=== PATIENT | female | born 1950 | race Two or more races ===

== ENCOUNTER → 2016-11-14 | Outpatient (CLI) | payer OTHER ==
--- NOTE | 2016-11-14 13:45 | RAD ---
DATE: 11/14/2016. EXAM: DIGITAL SCREEN BILAT W/CAD. HISTORY: Routine mammographic screening. COMPARISON: 11/14/2015. This study was interpreted with the benefit of Computerized Aided Detection (CAD). FINDINGS: The breast parenchyma shows scattered fibroglandular densities. There are no suspicious masses, microcalcifications or architectural distortion. Dense foci medially on the left CC view are stable chronically. Scattered calcifications are benign. BI-RADS CATEGORY: 2 BENIGN FINDING(S). RECOMMENDED FOLLOW-UP: 12M 12 MONTH FOLLOW-UP. PQRS compliance statement: Patient information was entered into a reminder system with a target due date 11/14/2017 for the next mammogram. Mammography is a sensitive method for finding small breast cancers, but it does not detect them all and is not a substitute for careful clinical examination. A negative mammogram does not negate a clinically suspicious finding and should not result in delay in biopsying a clinically suspicious abnormality. "Our facility is accredited by the [employer] Mammography [employer]."
== END | disposition home or self-care (01) ==
LOC: MAMMO 10:16
PROVIDERS: ATTEND Family Medicine
DX: Z12.31 Encounter for screening mammogram for malignant neoplasm of breast (principal)
CPT/HCPCS: G0202; 77067

== ENCOUNTER → 2017-12-02 | Outpatient (CLI) | payer OTHER | END | disposition home or self-care (01) | LOC: MAMMO 10:05 | DX: Z12.31 Encounter for screening mammogram for malignant neoplasm of breast (principal) | CPT/HCPCS: 77067 ==

== ENCOUNTER → 2018-12-03 | Outpatient (CLI) | payer OTHER ==
--- NOTE | 2018-12-03 09:03 | RAD ---
DATE: 12/03/2018 EXAM: DIGITAL SCREEN BILAT W/CAD HISTORY: Routine screening COMPARISON: 12/02/2017 This study was interpreted with the benefit of Computerized Aided Detection (CAD). Breast Density: SCATTERED The breast parenchyma shows scattered fibroglandular densities. Breast parenchyma level B. FINDINGS: No new or enlarging breast densities are seen. Minimal benign type calcification is present. No suspicious microcalcifications have developed. IMPRESSION: Stable mammograms without evidence of malignancy. BI-RADS CATEGORY: 2 BENIGN FINDING(S) RECOMMENDED FOLLOW-UP: 12M 12 MONTH FOLLOW-UP PQRS compliance statement: Patient information was entered into a reminder system with a target due date for the next mammogram. Mammography is a sensitive method for finding small breast cancers, but it does not detect them all and is not a substitute for careful clinical examination. A negative mammogram does not negate a clinically suspicious finding and should not result in delay in biopsying a clinically suspicious abnormality. "Our facility is accredited by the [employer] Mammography [employer]."
== END | disposition home or self-care (01) ==
LOC: MAMMO 07:46
PROVIDERS: ATTEND Family Medicine
DX: Z12.31 Encounter for screening mammogram for malignant neoplasm of breast (principal)
CPT/HCPCS: 77067

== ENCOUNTER → 2019-04-20 | Outpatient (CLI) | payer MEDICAID ==
--- NOTE | 2019-04-20 12:24 | RAD ---
EXAM: Right knee, 3 views. HISTORY: Pain and popping. COMPARISON: None. FINDINGS: 3 views of the right knee are obtained. There is lateral compartment joint space narrowing and subchondral sclerosis. There is moderate lateral and patellofemoral compartment and mild medial compartment spurring. There is chondrocalcinosis involving the lateral compartment. There is no joint effusion. IMPRESSION: Moderate lateral and patellofemoral compartment and mild medial compartment osteoarthritis of the right knee. Electronically signed by: Angelina Lazo MD (04/20/2019 12:21 PM) [email or web address]
== END | disposition home or self-care (01) ==
LOC: RAD 11:15
PROVIDERS: ATTEND Nurse Practitioner Gerontology
DX: M11.261 Other chondrocalcinosis, right knee (principal); M17.11 Unilateral primary osteoarthritis, right knee
CPT/HCPCS: 73562

== ENCOUNTER → 2019-05-16 | Outpatient (CLI) | payer MEDICAID ==
--- NOTE | 2019-05-16 11:33 | RAD ---
MR of the right knee HISTORY: Right knee pain. TECHNIQUE: Routine multiplanar sequences are obtained. FINDINGS: Mild signal within the medial meniscus, subtle inferior surface violation at the posterior horn on a couple of sagittal images and at the anterior horn on a single coronal image. Severe degenerative tear of the lateral meniscus. Anterior cruciate ligament is thin and displaced medially by a lateral femoral sidewall osteophyte. There is intercondylar notch stenosis due to osteophytes. No evidence of tear or discontinuity. Posterior cruciate ligament is intact. Medial collateral ligament intact. Iliotibial band unremarkable. Fibular collateral ligament, biceps femoris tendon and popliteus tendon are intact. Mild distal patellar tendinosis. Extensor mechanism is otherwise intact. Trace joint effusion. Severe articular cartilage loss with subchondral cysts and edema at the patellofemoral and lateral joint compartment. Moderate to severe degenerative change at the medial joint compartment. No aggressive bone destruction. No acute fracture. No significant Biggs's cyst. IMPRESSION: 1. Lateral meniscal tear. 2. Probable mild degenerative tear of the medial meniscus. 3. Severe primary osteoarthritis. 4. Mild distal patellar tendinosis. Electronically signed by: Troy Raymundo MD (05/16/2019 11:30 AM) [id number]
== END | disposition home or self-care (01) ==
LOC: MRI 09:04
PROVIDERS: ATTEND Nurse Practitioner Gerontology
DX: S83.281A Other tear of lateral meniscus, current injury, right knee, initial encounter (principal); M17.11 Unilateral primary osteoarthritis, right knee; M25.761 Osteophyte, right knee; M25.461 Effusion, right knee; X58.XXXA Exposure to other specified factors, initial encounter; Y93.89 Activity, other specified; Y92.89 Other specified places as the place of occurrence of the external cause; Y99.8 Other external cause status
CPT/HCPCS: 73721

== ENCOUNTER → 2019-06-01 | Outpatient (CLI) | payer MEDICAID | LOC: EDSEX → PMGORTHO 08:11 | PROVIDERS: ATTEND Orthopaedic Surgery | CPT/HCPCS: 36415 ==

== ENCOUNTER → 2020-04-25 | Outpatient (CLI) | payer MEDICAID ==
--- NOTE | 2020-04-25 16:32 | RAD ---
DATE: 04/25/2020 12:32 PM EXAM: DIGITAL SCREEN BILAT W/CAD HISTORY: Screening COMPARISON: 12/02/2017, 12/03/2018 Bilateral full field craniocaudal and mediolateral oblique images were obtained using digital technique. This study was interpreted with the benefit of Computerized Aided Detection (CAD). FINDINGS: Breast Density: SCATTERED The breast parenchyma shows scattered fibroglandular densities. Breast parenchyma level B No suspicious masses, microcalcifications or architectural distortion is present to suggest malignancy in either breast. The visualized axillae are unremarkable. IMPRESSION: No mammographic evidence of malignancy. BI-RADS CATEGORY: 1 NEGATIVE RECOMMENDED FOLLOW-UP: 12M 12 MONTH FOLLOW-UP Annual screening mammography is recommended, unless clinically indicated sooner based on symptoms or change in physical exam. PQRS compliance statement: Patient information was entered into a reminder system with a target due date for the next mammogram. Mammography is a sensitive method for finding small breast cancers, but it does not detect them all and is not a substitute for careful clinical examination. A negative mammogram does not negate a clinically suspicious finding and should not result in delay in biopsying a clinically suspicious abnormality. "Our facility is accredited by the [employer] Mammography Program."
== END | disposition home or self-care (01) ==
LOC: MAMMO 12:05
PROVIDERS: ATTEND Family Medicine
DX: Z12.31 Encounter for screening mammogram for malignant neoplasm of breast (principal)
CPT/HCPCS: 77067

== ENCOUNTER → 2021-03-06 | Outpatient (CLI) | payer MEDICAID ==
--- NOTE | 2021-03-07 09:39 | KCIC ---
MRI BRAIN WO History:Reason: Memory loss / Spl. Instructions: / History: Worsening memory loss. Evaluate for Alzh eimer's Technique: Multiplanar, multi sequential MR imaging was performed of the brain without contrast. Comparison: None Findings: No acute infarct. No intracranial hemorrhage. No mass effect. No hydrocephalus. Mild brain parenchymal volume loss. Mild foci of FLAIR hyperintensities within the hemispheric white matter, likely within normal range for age. Imaged orbits are unremarkable. Imaged paranasal sinuses and mastoid air cells are clear. Impression: 1. No acute intracranial abnormality. Electronically signed by: Chris Griffith DO (03/07/2021 9:36 AM) [id number]
--- NOTE | 2021-03-07 12:15 | KCIC ---
BILATERAL SCREENING MAMMOGRAM, 3-D History: Routine screening. Comparison: Bilateral mammogram April 25, 2020 and prior years. Technique: MLO and CC digital tomosynthesis (3D) images obtained. Radiologist reviewed these images on dedicated workstation. Findings: Breast Tissue Density B : There are scattered areas of fibroglandular density. There are no dominant masses, suspicious microcalcifications or architectural distortion. IMPRESSION: No mammographic evidence of malignancy. Recommend routine screening. BI-RADS category 1: Negative. The images were reviewed with computer-aided detection. Patient information is entered into reminder system with a target due date for the next screening [facility] mogram. Mammography is the most sensitive method for finding small breast cancers, but it does not detect the m all and is not a substitute for careful clinical examination. A negative mammogram does not negate a clinically suspicious finding and should not result in delay in biopsying a clinically suspicious a bnormality. "Our facility is accredited by the [employer] Mammography Program." Electronically signed by: Silverio Izaguirre MD (03/07/2021 12:13 PM) [email or web address]
== END ==
LOC: KCIC MRI 13:06
PROVIDERS: ATTEND Family Medicine
DX: Z12.31 Encounter for screening mammogram for malignant neoplasm of breast (principal); R41.3 Other amnesia
CPT/HCPCS: 70551; 77067